=== PATIENT | male | born 1975 | race Caucasian/White ===

== ENCOUNTER 2018-04-03 21:41 | Emergency (ER) | payer BC ==
[2018-04-03] MEDS ORDERED: KETOROLAC 30 MG/ML INJ ONE (22:12)
[2018-04-03] MEDS ORDERED: NA CHLORIDE 0.9% 100 ML IV ONE (22:15)
[2018-04-03] MEDS ORDERED: METOCLOPRAMIDE 10 MG/2mL INJ ONE (22:15)
[2018-04-03] MEDS ORDERED: DIPHENHYDRAMINE 50 MG/ML VIAL ONE (22:15)
[2018-04-03] MEDS ORDERED: MORPHINE 4 MG/ML SYR ONE (22:56)
--- NOTE | 2018-04-03 23:47 | EDPHYS ---
Physician Documentation [facility] Name: Shelton Langston Age: 42 yrs Sex: Male : 1975 Arrival Date: 04/03/2018 Time: 21:43 Bed 23 Private MD: ED Physician Ramu Brown HPI: 04/03 23:00 This 42 yrs old Male presents to ER via EMS with complaints of Headache. pm1 23:00 The patient complains of pain to the forehead. The patient describes the headache as pm1 aching, constant. Onset: The symptoms/episode began/occurred just prior to arrival. Associated signs and symptoms: Pertinent negatives: altered mental status, dizziness, paresthesias, Photophobia rash, vision changes, vomiting, weakness. Severity of symptoms: in the emergency department the pain is actually worse. Headache History: Other similar to prior cluster headaches. The symptoms are alleviated by nothing. typically he just rests and it self resolves without any medicaitons the symptoms are aggravated by nothing. The patient has experienced similar episodes in the past, multiple times, Has had cluster headaches for multiple years. Historical: - Allergies: 22:05 No Known Allergies; mg2 - Home Meds: 22:05 None [Active]; mg2 - PMHx: 22:05 Hypertension; mg2 - PSHx: 22:05 None; mg2 - Social history:: Smoking status: Patient/guardian denies using tobacco, Patient uses alcohol, occasionally. - Ebola Screening: : No symptoms or risks identified at this time. ROS: 23:00 Constitutional: Negative for fever, chills, and weight loss, Eyes: Negative for injury, pm1 pain, redness, and discharge, ENT: Negative for injury, pain, and discharge, Neck: Negative for injury, pain, and swelling, Cardiovascular: Negative for chest pain, palpitations, and edema, Respiratory: Negative for shortness of breath, cough, wheezing, and pleuritic chest pain, Abdomen/GI: Negative for abdominal pain, nausea, vomiting, diarrhea, and constipation, Back: Negative for injury and pain, MS/Extremity: Negative for injury and deformity, Skin: Negative for injury, rash, and discoloration. 23:00 Neuro: Positive for headache, Negative for loss of consciousness, numbness, weakness. Exam: 23:00 Constitutional: This is a well developed, well nourished patient who is awake, alert, pm1 and in no acute distress. Head/Face: Normocephalic, atraumatic. Eyes: Pupils equal round and reactive to light, extra-ocular motions intact. Lids and lashes normal. Conjunctiva and sclera are non-icteric and not injected. Cornea within normal limits. Periorbital areas with no swelling, redness, or edema. ENT: Nares patent. No nasal discharge, no septal abnormalities noted. Tympanic membranes are normal and external auditory canals are clear. Oropharynx with no redness, swelling, or masses, exudates, or evidence of obstruction, uvula midline. Mucous membranes moist. Neck: Trachea midline, no thyromegaly or masses palpated, and no cervical lymphadenopathy. Supple, full range of motion without nuchal rigidity, or vertebral point tenderness. No Meningismus. Chest/axilla: Normal chest wall appearance and motion. Nontender with no deformity. No lesions are appreciated. Cardiovascular: Regular rate and rhythm with a normal S1 and S2. No gallops, murmurs, or rubs. Normal PMI, no JVD. No pulse deficits. Respiratory: Lungs have equal breath sounds bilaterally, clear to auscultation and percussion. No rales, rhonchi or wheezes noted. No increased work of breathing, no retractions or nasal flaring. Abdomen/GI: Soft, non-tender, with normal bowel sounds. No distension or tympany. No guarding or rebound. No evidence of tenderness throughout. Back: No spinal tenderness. No costovertebral tenderness. Full range of motion. Skin: Warm, dry with normal turgor. Normal color with no rashes, no lesions, and no evidence of cellulitis. MS/ Extremity: Pulses equal, no cyanosis. Neurovascular intact. Full, normal range of motion. 23:00 Neuro: Orientation: is normal, Mentation: is normal, appropriate for stated age, Cranial nerves: CN II- XII are normal as tested, Motor: is normal, Sensation: is normal, no obvious gross deficits, Gait: is steady, at a normal pace, without difficulty. Vital Signs: 22:12 BP 185 / 120; Pulse 98; Resp 18; Temp 98.9; Pulse Ox 100% on R/A; Weight 127.01 kg; mg2 Height 6 ft. 3 in. (190.50 cm); Pain 10/10; 23:06 BP 154 / 105; Pulse 72; Resp 18; Pulse Ox 98% on R/A; Pain 7/10; mg2 23:41 BP 145 / 100; Pulse 75; Resp 18; Pulse Ox 100% on R/A; Pain 4/10; mg2 22:12 Body Mass Index 35.00 (127.01 kg, 190.50 cm) mg2 MDM: 21:53 Patient medically screened. pm1 23:34 Data reviewed: vital signs. Data interpreted: Pulse oximetry: on room air is 98 %. pm1 Interpretation: normal. Counseling: I had a detailed discussion with the patient and/or guardian regarding: the historical points, exam findings, and any diagnostic results supporting the discharge/admit diagnosis, radiology results, the need for outpatient follow up, to return to the emergency department if symptoms worsen or persist or if there are any questions or concerns that arise at home. 04/03 22:03 Order name: CT Head Brain wo Cont pm1 04/03 22:03 Order name: IV Saline Lock; Complete Time: 22:06 pm1 Administered Medications: 22:11 Drug: TORadol 30 mg Route: IVP; Site: right antecubital; mg2 23:42 Follow up: Response: No adverse reaction; Marked relief of symptoms mg2 22:11 Drug: Benadryl 25 mg Route: IVP; Site: right antecubital; mg2 23:42 Follow up: Response: No adverse reaction; Marked relief of symptoms mg2 22:12 Drug: Reglan 10 mg Route: IVP; Site: right antecubital; mg2 23:42 Follow up: Response: No adverse reaction; Marked relief of symptoms mg2 22:53 Drug: morphine 4 mg Route: IVP; Site: right antecubital; mg2 23:42 Follow up: Response: No adverse reaction; Marked relief of symptoms mg2 04/04 00:16 Drug: Tylenol #3 (300 mg-30 mg) 1 tablet Route: PO; mg2 00:16 Follow up: Response: No adverse reaction; Medication administered at discharge. mg2 Disposition: 04/03/18 23:46 Discharged to Home. Impression: Headache. - Condition is Stable. - Discharge Instructions: Cluster Headache. - Prescriptions for Tylenol- Codeine #3 300-30 mg Oral Tablet - take 2 tablets by ORAL route every 6 hours As needed; 10 tablet. - Medication Reconciliation Form, Thank You Letter form. - Follow up: Emergency Department; When: As needed; Reason: Worsening of condition. Follow up: Private Physician; When: 2 - 3 days; Reason: Recheck today's complaints, Continuance of care, Re-evaluation by your physician. - Problem is new. - Symptoms have improved. Addendum: 04/06/2018 04:06 Co-signature as Attending Physician, Ramu Brown MD. g s Signatures: Dispatcher [employer] EDWY Jer Altman, ANDROID DEVELOPER ANDROID DEVELOPER pm1 Ramu Brown MD MD Joseph Vickers, RN RN mg2 Corrections: (The following items were deleted from the chart) 04/04 00:17 04/03 23:46 04/03/2018 23:46 Discharged to Home. Impression: Headache. Condition is mg2 Stable. Forms are Medication Reconciliation Form, Thank You Letter, Antibiotic Education, Prescription Opioid Use. Follow up: Emergency Department; When: As needed; Reason: Worsening of condition. Follow up: Private Physician; When: 2 - 3 days; Reason: Recheck today's complaints, Continuance of care, Re-evaluation by your physician. Problem is new. Symptoms have improved. pm1
--- NOTE | 2018-04-03 23:47 | ER ---
Nurse's Notes [facility] Name: Shelton Langston Age: 42 yrs Sex: Male : 1975 Arrival Date: 04/03/2018 Time: 21:43 Bed 23 Private MD: Diagnosis: Headache Presentation: 04/03 21:54 Presenting complaint: EMS states: patient has severe cluster headache for 2 days. mg2 denies n/v. 22:24 Transition of care: patient was not received from another setting of care. Onset of mg2 symptoms was April 02, 2018. Risk Assessment: Do you want to hurt yourself or someone else? Patient reports no desire to harm self or others. Initial Sepsis Screen: Does the patient meet any 2 criteria? No. Patient's initial sepsis screen is negative. Does the patient have a suspected source of infection? No. Patient's initial sepsis screen is negative. Care prior to arrival: None. 22:24 Method Of Arrival: EMS: [place] [id number] 22:24 Acuity: CHASIDY 3 mg2 Triage Assessment: 22:25 General: Appears uncomfortable, Behavior is anxious. mg2 Historical: - Allergies: 22:05 No Known Allergies; mg2 - Home Meds: 22:05 None [Active]; mg2 - PMHx: 22:05 Hypertension; mg2 - PSHx: 22:05 None; mg2 - Social history:: Smoking status: Patient/guardian denies using tobacco, Patient uses alcohol, occasionally. - Ebola Screening: : No symptoms or risks identified at this time. Screenin:22 Abuse screen: Denies threats or abuse. Denies injuries from another. Abuse screen:. mg2 Nutritional screening: No deficits noted. Tuberculosis screening: No symptoms or risk factors identified. Fall Risk None identified. Assessment: 22:20 Reassessment: No changes from previously documented assessment. Pain: Complains of pain mg2 in head-left temporal. Neuro: Level of Consciousness is awake, alert, obeys commands, Oriented to person, place, time, situation, Reports headache in left that is the "worst ever", since yesterday. Cardiovascular: Capillary refill < 3 seconds Patient's skin is warm and dry. Respiratory: Airway is patent Respiratory effort is even, unlabored, Respiratory pattern is regular, symmetrical. GI: No deficits noted. : No deficits noted. EENT: No deficits noted. Derm: Skin is intact, is healthy with good turgor, Skin is pink, warm \\T\\ dry. normal. Musculoskeletal: No deficits noted. Vital Signs: 22:12 BP 185 / 120; Pulse 98; Resp 18; Temp 98.9; Pulse Ox 100% on R/A; Weight 127.01 kg; mg2 Height 6 ft. 3 in. (190.50 cm); Pain 10/10; 23:06 BP 154 / 105; Pulse 72; Resp 18; Pulse Ox 98% on R/A; Pain 7/10; mg2 23:41 BP 145 / 100; Pulse 75; Resp 18; Pulse Ox 100% on R/A; Pain 4/10; mg2 22:12 Body Mass Index 35.00 (127.01 kg, 190.50 cm) mg2 ED Course: 21:43 Patient arrived in ED. al2 21:50 Jer Altman NP is PHCP. pm1 21:50 Ramu Brown MD is Attending Physician. pm1 21:54 Joseph Vickers RN is Primary Nurse. mg2 22:10 Radiology exam delayed due to ON A PAIN MED DRIP AT THIS TIME. nj 22:13 Arm band placed on. mg2 22:[address] via wheelchair. vm2 22:23 No provider procedures requiring assistance completed. Inserted saline lock: 22 gauge mg2 in right antecubital area, using aseptic technique. 22:25 Triage completed. mg2 22:25 Patient has correct armband on for positive identification. mg2 22:29 CT completed. Patient tolerated procedure well. Patient moved back from CT. vm2 22:30 CT Head Brain wo Cont In Process Unspecified. EDMS 04/04 00:12 IV discontinued, intact, bleeding controlled, No redness/swelling at site. Pressure mg2 dressing applied. Administered Medications: 04/03 22:11 Drug: TORadol 30 mg Route: IVP; Site: right antecubital; mg2 23:42 Follow up: Response: No adverse reaction; Marked relief of symptoms mg2 22:11 Drug: Benadryl 25 mg Route: IVP; Site: right antecubital; mg2 23:42 Follow up: Response: No adverse reaction; Marked relief of symptoms mg2 22:12 Drug: Reglan 10 mg Route: IVP; Site: right antecubital; mg2 23:42 Follow up: Response: No adverse reaction; Marked relief of symptoms mg2 22:53 Drug: morphine 4 mg Route: IVP; Site: right antecubital; mg2 23:42 Follow up: Response: No adverse reaction; Marked relief of symptoms mg2 04/04 00:16 Drug: Tylenol #3 (300 mg-30 mg) 1 tablet Route: PO; mg2 00:16 Follow up: Response: No adverse reaction; Medication administered at discharge. mg2 Outcome: 04/03 23:46 Discharge ordered by . pm1 04/04 00:17 Discharged to home ambulatory, with family. mg2 Condition: stable Discharge instructions given to patient, family, Instructed on discharge instructions, follow up and referral plans. medication usage, Demonstrated understanding of instructions, follow-up care, medications, Prescriptions given X 1. 00:17 Patient left the ED. mg2 Signatures: Dispatcher [employer] EDMS Jer Altman, DWAYNE FRUIT HARVESTER pm1 Primo Mcintosh Victoria vm2 Britney Rudolph2 Joseph Vickers RN RN mg2 Corrections: (The following items were deleted from the chart) 04/03 22:22 22:20 Neuro: Level of Consciousness is awake, alert, obeys commands, Oriented to mg2 person, place, time, situation, mg2
[2018-04-04] MEDS ORDERED: CODEINE 30MG/APAP 300MG TAB ONE (00:23)
--- NOTE | 2018-04-04 09:48 | RAD REPORT ---
EXAM DESCRIPTION: CT - Head Brain Wo Cont - 04/04/2018 5:51 am CLINICAL HISTORY: Headache COMPARISON: None. TECHNIQUE: Computed axial tomography of the head was obtained. IV contrast was not requested. Prelim inary report was generated by [employer] and reviewed prior to dictation All CT scans are performed using dose optimization technique as appropriate and may include automated exposure control or mA/KV adjustment according to patient size. FINDINGS: An intracranial bleed is not seen . The ventricles are normal in caliber. No extra-axial fluid collection is noted. Fluid within the sinuses/ mastoids is not seen. IMPRESSION: No acute intracranial abnormality is seen. If patient's symptoms persist MRI of the bra in would be recommended.
[2018-04-04 11:06] VITALS: TEMP 98.9
[2018-04-04 11:09] VITALS: BP 145/100; O2SAT 100
== END 2018-04-04 00:17 | disposition home or self-care (01) ==
LOC: ER 21:41
DX: R51 Headache (principal); I10 Essential (primary) hypertension
CPT/HCPCS: 70450; 96374; 96375; 99284; J2765